=== PATIENT | female | born 1965 | race Caucasian/White ===

== ENCOUNTER 2016-08-04 12:10 | Emergency (ER) | payer SELFPAY ==
[2016-08-04] MEDS ORDERED: LOVASTATIN20 M2 PO (13:26)
[2016-08-04] MEDS ORDERED: GLUCOPHAGE500 M3 PO (13:26)
[2016-08-04] MEDS ORDERED: PRINIVIL10 M1 PO (13:26)
[2016-08-04] MEDS ORDERED: ASPIRIN81 M1 PO (13:27)
== END 2016-08-04 13:58 ==
LOC: EDMED 12:10
DX: T16.1XXA Foreign body in right ear, initial encounter (principal); E11.9 Type 2 diabetes mellitus without complications; I10 Essential (primary) hypertension; Z79.82 Long term (current) use of aspirin; Z79.899 Other long term (current) drug therapy